=== PATIENT | male | born 1960 | race Caucasian/White ===

== ENCOUNTER → 2017-08-27 | Outpatient (CLI) | payer OTHER ==
[~2017-08-27] MED LIST: LISINOPRIL20 MG PO; METHADONE40 MG PO; MOTRIN800 MG PO; PERCOCET 325 MG1 TA7 PO; TUCKS TP
== END | disposition home or self-care (01) ==
LOC: RAD 16:44
DX: M16.11 Unilateral primary osteoarthritis, right hip (principal); M17.0 Bilateral primary osteoarthritis of knee; M25.461 Effusion, right knee

== ENCOUNTER 2020-02-01 19:28 | Emergency (ER) | payer SELFPAY ==
[~2020-02-01] VITALS: Wt 127.0 kg
== END 2020-02-01 21:21 | disposition expired ==
LOC: ED 19:28
DX: I46.9 Cardiac arrest, cause unspecified (principal); Z79.899 Other long term (current) drug therapy